=== PATIENT | male | born 1980 | race Caucasian/White ===

== ENCOUNTER 2019-04-29 06:00 | Outpatient (RCR) | payer BC, SELFPAY | END 2019-05-14 00:01 | LOC: GPT 06:00 | PROVIDERS: Family Provider Nurse Practitioner Family; Visit Provider Nurse Practitioner Family | DX: G57.01 Lesion of sciatic nerve, right lower limb (principal) | CPT/HCPCS: 97110 ×3; 97140 ×2; 97161 ==

== ENCOUNTER 2019-05-15 06:00 | Outpatient (RCR) | payer BC, SELFPAY | END 2019-06-14 23:59 | disposition home or self-care (01) | LOC: GPT 06:00 | PROVIDERS: Family Provider Nurse Practitioner Family; PCP Nurse Practitioner Family; Visit Provider Nurse Practitioner Family | DX: G57.01 Lesion of sciatic nerve, right lower limb (principal); M47.892 Other spondylosis, cervical region | CPT/HCPCS: 97110; 97112; 97140 ==

== ENCOUNTER 2019-06-15 06:00 | Outpatient (RCR) | payer BC, SELFPAY | END 2019-07-13 23:59 | disposition home or self-care (01) | LOC: GPT 06:00 | PROVIDERS: Family Provider Nurse Practitioner Family; PCP Nurse Practitioner Family; Visit Provider Nurse Practitioner Family | DX: Z01.89 Encounter for other specified special examinations (principal) ==

== ENCOUNTER → 2022-02-15 09:47 | Outpatient (BNVA) | payer BC, SELFPAY | PROVIDERS: Family Provider Nurse Practitioner Family; PCP Nurse Practitioner Family; Visit Provider Nurse Practitioner | DX: M25.532 Pain in left wrist (principal); M79.632 Pain in left forearm; Z98.890 Other specified postprocedural states | CPT/HCPCS: 73090; 73110 ==

== ENCOUNTER 2022-07-12 06:00 | Outpatient (RCR) | payer OTHER, SELFPAY | END 2022-07-12 23:59 | disposition home or self-care (01) | LOC: GPT 06:00 | PROVIDERS: Visit Provider Nurse Practitioner | DX: M79.605 Pain in left leg (principal) | CPT/HCPCS: 97161 ==

== ENCOUNTER 2022-07-13 06:00 | Outpatient (RCR) | payer OTHER, SELFPAY | END 2022-07-19 19:07 | disposition home or self-care (01) | LOC: GPT 06:00 | PROVIDERS: Visit Provider Nurse Practitioner | DX: M79.605 Pain in left leg (principal) | CPT/HCPCS: 97110; 97140 ==

== ENCOUNTER → 2022-12-12 16:58 | Outpatient (BNVA) | payer OTHER, SELFPAY | PROVIDERS: PCP Nurse Practitioner Family; Visit Provider Nurse Practitioner Family | DX: L02.91 Cutaneous abscess, unspecified (principal) | CPT/HCPCS: 87070 ==